=== PATIENT | male | born 1945 | race Caucasian/White ===

== ENCOUNTER 2016-10-16 07:30 | Day surgery (SDC) | payer MEDICARE, OTHER ==
[~2016-10-16] VITALS: Ht 182.9 cm; Wt 79.4 kg
[~2016-10-16 07:30] MED LIST: CEFAZOLIN 2GM PREMIX 50 ML IV PRN; FENTANYL PF 100 MCG/2 ML VIAL. IV PRN; HYDROMORPHONE 2 MG/ML VIAL. IV PRN; IV RINGERS,LACTATED 1000ML 1,000 ML IV SCH; LIDOCAINE 1% 1 ML SYRINGE. ID PRN; MORPHINE SULFATE 2 MG/ML DISP.SYRIN. IV PRN; ONDANSETRON PF 4 MG/2 ML VIAL. IV PRN; PROCHLORPERAZINE 10 MG/2 ML VIAL. IV PRN
[2016-10-16] MEDS ORDERED: ACETAMINOPHEN INTRAVENOUS 100 ML IV ONE ×2 (07:43→08:45)
[2016-10-16] MEDS ORDERED: BUPIVACAINE-EPI 0.25%-1:200000 50 ML VIAL. ONE (08:29)
[2016-10-16] MEDS ORDERED: LIDOCAINE 2% 100 MG/5 ML DISP.SYRIN. ONE (08:51)
[2016-10-16] MEDS ORDERED: ROCURONIUM 50 MG/5 ML VIAL. ONE (08:51)
[2016-10-16] MEDS ORDERED: PROPOFOL 20 ML IV ONE ×2 (08:51→10:55)
[2016-10-16] MEDS ORDERED: DEXAMETHASONE SOD PHOS 20 MG/5 ML VIAL. ONE (08:51)
[2016-10-16] MEDS ORDERED: ONDANSETRON PF 4 MG/2 ML VIAL. ONE (08:51)
[2016-10-16] MEDS ORDERED: FAMOTIDINE 20 MG/2 ML VIAL ONE (08:51)
[2016-10-16] MEDS ORDERED: FENTANYL PF 100 MCG/2 ML VIAL. ONE (08:51)
[2016-10-16] MEDS ORDERED: SILD50TA PO (09:07)
[2016-10-16] MEDS ORDERED: ASPI81TA2 PO (09:09)
[2016-10-16] MEDS ORDERED: TAMS0.4C97 PO (09:09)
[2016-10-16] MEDS ORDERED: LISI10TA2 PO (09:09)
[2016-10-16] MEDS ORDERED: VARE0.5T PO (09:09)
[2016-10-16] MEDS ORDERED: EPHEDRINE PF IN SALINE 50 MG/5 ML DISP.SYRIN. IV ONE (10:24)
[2016-10-16] MEDS ORDERED: GLYCOPYRROLATE 1 MG/5 ML VIAL. ONE (10:55)
[2016-10-16] MEDS ORDERED: NEOSTIGMINE METHYLSULFATE 5 MG/5 ML SYRINGE. ONE (10:55)
[2016-10-16] MEDS ORDERED: SEVOFLURANE 61 TO 120 MINUTES. IH ONE (11:03)
--- NOTE | 2016-10-16 11:07 | PDOC ---
BRIEF OPERATIVE NOTE Date: Oct 16, 2016 Pre-Op Diagnosis RIH Post-Op Diagnosis Same Procedure Performed Robotic assisted L/S RIH repair with mesh Surgeon Benjy Anesthesia Type: General Blood Loss 10ml Specimens Obtained None Findings as above Complications None VIN TOMPKINS MD Oct 16, 2016 11:07
--- NOTE | 2016-10-16 11:08 | DISCH ---
DISCHARGE INSTRUCTIONS Condition on Discharge Condition on Discharge: Stable Activity After Discharge Activity Instructions for Disc: Avoid exertion Other activity instructions: No lifting >20lbs for 2 weeks Diet after Discharge Diet after Discharge: Regular Wound Incision Care Other wound/incision instructi: Shruti olsen in 2 weeks Contacting the after DC Call your doctor for: If your condition worsens Follow-Up Follow up with: Dr Tompkins in 2 weeks VIN TOMPKINS MD Oct 16, 2016 11:08
[2016-10-16] MEDS ORDERED: HYDR-971 PO (12:17)
[2016-10-16 12:31] VITALS: BP 114/77
--- NOTE | 2016-10-17 03:44 | OP ---
DATE OF SURGERY: 10/16/2016 PREOPERATIVE DIAGNOSIS: Right inguinal hernia. POSTOPERATIVE DIAGNOSIS: Right inguinal hernia. PROCEDURE: Robotic-assisted laparoscopic right inguinal hernia repair with mesh. SURGEON: Charli Tompkins M.D. INDICATIONS: The patient is a 71-year-old gentleman who has complained of a painful bulge in his right groin. Procedure of robotic-assisted laparoscopic right inguinal hernia repair was explained to the patient in detail. Risks, benefits were also discussed including bleeding, infection, injury to intra-abdominal contents, possibly necessitating further open operations. Alternatives of this procedure were also discussed with the patient who seemed to understand and gave verbal and written consent to have the procedure performed. DESCRIPTION OF PROCEDURE: The patient was taken to the operating room and placed in the supine position, general anesthesia was initiated. Once the patient was asleep and intubated, he was then placed in low lithotomy. His abdomen was prepped and draped in usual sterile fashion using ChloraPrep. An area just above the umbilicus, injected 0.25% Marcaine with epinephrine. Incision was made with an 11 blade scalpel and a Veress needle was placed within the abdomen. Pneumoperitoneum was achieved. Once this was complete, an 8.5 mm da Stella port was placed and the camera was placed within the abdomen. Abdomen was inspected and it was noted both indirect and direct hernia in the right groin. Left groin appeared normal. At this point, two more 8.5 mm ports were placed under direct visualization, one in the left mid abdomen, one in the right mid abdomen. A da Stella robot was brought in and docked between the patient's legs to all port sites. The camera was placed within the abdomen along with a grasper and EndoShears scissors. At this point, the surgeon went to the robotic console. Using a grasper and EndoShears scissors, the peritoneum was opened above the right inguinal hernia. This window was propagated past inguinal hernia with the hernia contents being reduced and hernia sac reduced. At this point, a ProGrip mesh was then placed over the hernia defect on the floor of the pelvis. The peritoneum was then closed over the mesh with a running V-Loc suture. Once this was complete, the pneumoperitoneum was reduced. All ports were removed. The da Stella undocked. Skin incisions were closed with running 4-0 subcuticular Monocryl. Mastisol, Steri-Strips, 4 x 4's and Medipore tape were applied as dressing. The patient was awakened, extubated in the operating room, taken to recovery in stable condition. All sponge, instrument counts listed as correct. Estimated blood loss 10 mL. CHARLI TOMPKINS MD DR: NAKIA/charli JOB#: [id number] / [id number] NATALIO BACA MD
== END 2016-10-16 13:11 | disposition home or self-care (01) ==
LOC: SURG 07:30
PROVIDERS: ATTEND Surgery
DX: K40.90 Unilateral inguinal hernia, without obstruction or gangrene, not specified as recurrent (principal); M19.90 Unspecified osteoarthritis, unspecified site; I10 Essential (primary) hypertension
CPT/HCPCS: 49650; C1781; J0131; J0690; J1100; J2405; J2704; J2710; J3010; J3490; J7120; S0028

== ENCOUNTER 2021-09-18 09:48 | Day surgery (SDC) | payer MEDICARE, OTHER ==
[~2021-09-18] VITALS: Ht 182.9 cm; Wt 85.0 kg
[~2021-09-18 09:48] MED LIST changes: +ACETAMINOPHEN 500 MG TABLET PO PRN; +ASPI-630 PO; -CEFAZOLIN 2GM PREMIX 50 ML IV PRN; +DUTA0.5C PO; -FENTANYL PF 100 MCG/2 ML VIAL. IV PRN; +FINA5TAB4 PO; +HYDR-3164 PO; -HYDROMORPHONE 2 MG/ML VIAL. IV PRN; +HYDROmorphone 2 MG/ML INJ. IVP PRN; -LIDOCAINE 1% 1 ML SYRINGE. ID PRN; +LISI10TA16 PO; +MELO15TA23 PO; +MIRA25TA PO; -MORPHINE SULFATE 2 MG/ML DISP.SYRIN. IV PRN; +MORPHINE SULFATE 2 MG/ML INJ. IVP PRN; -ONDANSETRON PF 4 MG/2 ML VIAL. IV PRN; +OXYB10TA26 PO; -PROCHLORPERAZINE 10 MG/2 ML VIAL. IV PRN; +PROCHLORPERAZINE 10 MG/2 ML VIAL. IVP PRN; +SILD50TA PO; +TAMS0.4C97 PO; +VARE0.5T PO; +fentaNYL PF VIAL 100 MCG/2 ML VIAL IVP PRN
[2021-09-18 10:12] VITALS: BP 127/90
[2021-09-18] MEDS ORDERED: DOXY50CA PO (10:35)
[2021-09-18] MEDS ORDERED: SOLI10TA2 PO (10:36)
[2021-09-18] MEDS ORDERED: OXYB10TA7 PO (10:37)
[2021-09-18] MEDS ORDERED: DEXAMETHASONE SOD PHOS 4 MG/ML VIAL ONE (11:07)
[2021-09-18] MEDS ORDERED: NEOSTIGMINE METHYLSULFATE 5 MG/5 ML SYRINGE. ONE (11:07)
[2021-09-18] MEDS ORDERED: ONDANSETRON PF 4 MG/2 ML VIAL. ONE (11:07)
[2021-09-18] MEDS ORDERED: LIDOCAINE 2% PF 5 ML VIAL. ONE (11:07)
[2021-09-18] MEDS ORDERED: PROPOFOL 10 MG/ML (20ML) VIAL. IV ONE (11:07)
[2021-09-18] MEDS ORDERED: ROCURONIUM 50 MG/5 ML VIAL. ONE ×2 (11:07→12:27)
[2021-09-18] MEDS ORDERED: GLYCOPYRROLATE 1 MG/5 ML VIAL. ONE (11:08)
[2021-09-18] MEDS ORDERED: MIDAZOLAM HCL/PF 2 MG/2 ML VIAL. ONE (11:08)
[2021-09-18] MEDS ORDERED: fentaNYL PF VIAL 100 MCG/2 ML VIAL ONE (11:08)
--- NOTE | 2021-09-18 11:34 | PDOC1 ---
History and Physical Date of Admission Date of Admission DATE: 09/18/21 TIME: 11:31 Identification/Chief Complaint Chief Complaint Left inguinal hernia Source Source: Patient History of Present Illness History of Present Illness 76-year-old male with complaints of a painful bulge in his left groin he had previously had a right inguinal hernia repair about 5 years ago now he feels like there is one on the left Past Medical History Cardiovascular: HTN Renal/: Benign prostatic enlarg. Past Surgical History Past Surgical History: Appendectomy, Hernia Repair (Right side) Family History Family History: No Significant Social History Smoke: No ALCOHOL: rare Drugs: None Current Medications Current Medications Current Medications Fentanyl Citrate (Fentanyl 2ml Vial) 25 mcg PRN Q5MIN PRN IVP MILD PAIN 1-3; Start 09/18/21 at 06:00; Stop 09/19/21 at 05:59 Fentanyl Citrate (Fentanyl 2ml Vial) 50 mcg PRN Q5MIN PRN IVP MODERATE PAIN 4- 6; Start 09/18/21 at 06:00; Stop 09/19/21 at 05:59 Morphine Sulfate (Morphine Sulfate) 1 mg PRN Q10MIN PRN IVP SEVERE PAIN 7-10; Start 09/18/21 at 06:00; Stop 09/19/21 at 05:59 Ringer's Solution 1,000 ml @ 30 mls/hr Q24H IV Last administered on 09/18/21at 10:38; Start 09/18/21 at 06:00; Stop 09/18/21 at 17:59 Hydromorphone HCl (Dilaudid) 0.5 mg PRN Q10MIN PRN IVP SEVERE PAIN 7-10, 2nd CHOICE; Start 09/18/21 at 06:00; Stop 09/19/21 at 05:59 Prochlorperazine Edisylate (Compazine) 5 mg PACU PRN PRN IVP NAUSEA, MRX1; Start 09/18/21 at 06:00; Stop 09/19/21 at 05:59 Acetaminophen (Tylenol) 1,000 mg 1X PREOP PRN PO PRIOR TO PROCEDURE; Start 09/18/21 at 06:00; Stop 09/18/21 at 15:00 Cefazolin Sodium/ Dextrose 50 ml @ 100 mls/hr 1X PREOP PRN IV PRIOR TO PROCEDURE; Start 09/18/21 at 06:00; Stop 09/18/21 at 18:00 Lidocaine HCl (Lidocaine Pf 2% Vial) 5 ml STK-MED ONCE .ROUTE ; Start 09/18/21 at 11:07; Stop 09/18/21 at 11:07; Status DC Propofol (Diprivan) 200 mg STK-MED ONCE IV ; Start 09/18/21 at 11:07; Stop 09/18/21 at 11:07; Status DC Ondansetron HCl (Zofran) 4 mg STK-MED ONCE .ROUTE ; Start 09/18/21 at 11:07; Stop 09/18/21 at 11:07; Status DC Dexamethasone Sodium Phosphate (Decadron) 4 mg STK-MED ONCE .ROUTE ; Start 09/18/21 at 11:07; Stop 09/18/21 at 11:07; Status DC Neostigmine Custar (Neostigmine Methylsulfate) 5 mg STK-MED ONCE .ROUTE ; Start 09/18/21 at 11:07; Stop 09/18/21 at 11:07; Status DC Rocuronium Custar (Zemuron) 50 mg STK-MED ONCE .ROUTE ; Start 09/18/21 at 11:07; Stop 09/18/21 at 11:07; Status DC Fentanyl Citrate (Fentanyl 2ml Vial) 100 mcg STK-MED ONCE .ROUTE ; Start 09/18/21 at 11:08; Stop 09/18/21 at 11:08; Status DC Midazolam HCl (Versed) 2 mg STK-MED ONCE .ROUTE ; Start 09/18/21 at 11:08; Stop 09/18/21 at 11:08; Status DC Glycopyrrolate (Robinul) 1 mg STK-MED ONCE .ROUTE ; Start 09/18/21 at 11:08; St op 09/18/21 at 11:08; Status DC Active Scripts Active Reported Ditropan Xl (Oxybutynin Chloride) 10 Mg Tab.er.24 10 Mg PO DAILY Vesicare (Solifenacin Succinate) 10 Mg Tablet 1 Tab PO DAILY 30 Days Doxycycline Hyclate 50 Mg Capsule 20 Mg PO DAILY Avodart (Dutasteride) 0.5 Mg Capsule 0.5 Mg PO DAILY Lisinopril 10 Mg Tablet 10 Mg PO DAILY Aspirin 81 Mg Tab.chew 81 Mg PO DAILY Viagra (Sildenafil Citrate) 50 Mg Tablet 50 Mg PO ONCE PRN Meloxicam 15 Mg Tablet 15 Mg PO DAILY Allergies Allergies: Coded Allergies: No Known Drug Allergies (Unverified , 09/18/21) ROS Genitourinary: YES Other (Left groin pain) Physical Exam General: Alert, Oriented X3, Cooperative, No acute distress HEENT: Atraumatic, EOMI Lungs: Clear to auscultation, Normal air movement Heart: RRR, no murmurs Abdomen: Normal bowel sounds, Soft, No tenderness Male Genitals Exam: inguinal tenderness (Left-sided) Rectal Exam: not examined Extremities: No edema Skin: No significant lesion Neuro: Normal gait, Normal speech Vitals Vitals Vital Signs Date Time Temp Pulse Resp B/P (MAP) Pulse Ox O2 Delivery O2 Flow Rate FiO2 09/18/21 10:20 98.6 86 18 127/90 97 Room Air 98.6 VTE Prophylaxis Ordered VTE Prophylaxis Devices: Yes VTE Pharmacological Prophylaxi: Contraindicated Assessment/Plan Assessment/Plan Left inguinal hernia plan robotic assisted laparoscopic repair Justifications for Admission Other Justification VIN TOMPKINS MD Sep 18, 2021 11:34
[2021-09-18] MEDS ORDERED: BUPIVACAINE-EPI 0.25% 30 ML VIAL KIT. ONE (11:35)
[2021-09-18] MEDS ORDERED: MINERAL OIL for SURGERY 10 ML VIAL. MC ONE (11:35)
[2021-09-18] MEDS ORDERED: HYDROmorphone 2 MG/ML INJ. ONE (12:45)
[2021-09-18] MEDS ORDERED: KETOROLAC 30 MG/ML VIAL. ONE (13:09)
--- NOTE | 2021-09-18 13:22 | PDOC4 ---
Operative Note Operative Note Date: 09/18/2021 at 1:20 PM Preoperative diagnosis: Left inguinal hernia Postoperative diagnosis: Same Procedure: Robotic assisted laparoscopic left inguinal hernia repair with mesh Surgeon: Benjy Specimen: None Dictation: Patient is 76-year-old male with complaints of a painful bulge in his left groin consistent with a hernia. The procedure robotic assisted laparoscopic left inguinal hernia repair with mesh was explained to the patient detail respite effects were also discussed including bleeding infection injury to intra-abdominal contents possibly sustaining further or open operations alternatives to this procedure also discussed with the patient who seemed to understand and gave both verbal and written consent had procedure performed. Patient was taken to the operating room placed in the supine position general anesthesia was initiated once patient was asleep and intubated he was placed in low lithotomy positioning and his abdomen was prepped and draped usual sterile fashion using ChloraPrep. Area just above the umbilicus was injected with quarter percent Marcaine with epinephrine incision was made 11 blade scalpel and a varies needle was placed within the abdomen creating pneumoperitoneum once this was complete 8 mm ventral port was placed in the a millimeter da Stella camera was placed within the abdomen which was inspected there were abnormalities were noted 8 mm da Stella ports placed in the right mid abdomen and 8 mm da Stella ports placed in left midabdomen all under direct visualization. The da Stella robot is brought and docked all port sites surgeon went to the robotic console using a grasper and Endo Kady scissors the peritoneum on the left side was incised and the peritoneal flap was propagated inferiorly reducing the hernia sac and contents. A large Bard 3D max mesh for the left side was then placed over the hernia defect and the peritoneum was closed over the mesh with a running 2 OV lock absorbable suture. Suture was then removed from the abdomen the da Stella robot was undocked from all port sites all ports were removed and pneumoperitoneum reduced all port sites were closed with 4 subcuticular Monocryl Mastisol Steri-Strips and island dressings were applied. Patient was awakened and extubated in the operating room taken to recovery in stable condition all sponge instrument needle counts listed as correct estimated blood loss 5 mL. VIN TOMPKINS MD Sep 18, 2021 13:22
[2021-09-18] MEDS ORDERED: OXYC-325 PO (13:25)
--- NOTE | 2021-09-18 13:26 | DISCH ---
DISCHARGE INSTRUCTIONS Condition on Discharge Condition on Discharge: Stable Activity After Discharge Activity Instructions for Disc: Avoid exertion Other activity instructions: No lifting more than 20 pounds for 2 weeks Diet after Discharge Diet after Discharge: Regular Wound Incision Care Other wound/incision instructi: Shruti shower in 24 hours Contacting the DRMadiha after DC Call your doctor for: If your condition worsens Follow-Up Follow up with: Dr. Tompkins in 2 weeks VIN TOMPKINS MD Sep 18, 2021 13:26
[2021-09-18] MEDS ORDERED: PROCHLORPERAZINE 10 MG/2 ML VIAL. ONE (14:10)
[2021-09-18] MEDS ORDERED: oxyCODONE/APAP 5/325 1 TAB TABLET PO ONE (14:15)
[2021-09-18 14:32] VITALS: BP 125/84
== END 2021-09-18 15:06 | disposition home or self-care (01) ==
LOC: SURG 09:48
PROVIDERS: ATTEND Surgery
DX: K40.90 Unilateral inguinal hernia, without obstruction or gangrene, not specified as recurrent (principal); I10 Essential (primary) hypertension; Z85.828 Personal history of other malignant neoplasm of skin; Z79.82 Long term (current) use of aspirin; Z79.899 Other long term (current) drug therapy; Z98.890 Other specified postprocedural states
CPT/HCPCS: 49650; A4209; A4364; A4930; A6219; C1781; J0690; J0780; J1100; J1170; J1885; J2250; J2405; J2704; J2710; J3010; J3490; A4452; A4657